=== PATIENT | female | born 2000 | race Asian ===

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

== ENCOUNTER 2021-03-29 17:30 | Emergency (ER) | payer OTHER, SELFPAY ==
[2021-03-29 17:31] VITALS: BP 108/70; PULSE 61; RESP 14; TEMP 36.7; O2SAT 97; BMI 23.5
[2021-03-29 18:41] LABS: Mucous, Urine 0 SEEN /hpf (<or=2+)
[2021-03-29 18:53] LABS: Glucose, Dipstick Normal (Normal); Ketone-Dipstick 15 mg/dl (Negative); Leukocyte Esterase-Dipstick 500 /ul (Negative); Nitrite-Dipstick Positive (Negative); Occult Blood-Urine 250 /ul (Negative); Protein-Dipstick 15 mg/dl (Negative); Specific Gravity, Urine 1.015 (1.002-1.030); Urine Clarity Sl. Cloudy (Clear); Urine Urobilinogen 8 mg/dl (Normal)
[2021-03-29 18:57] LABS: Internal QC Validated? YES +Cl - CLEAR BKGD; Pregnancy, Urine Negative Negative
[2021-03-29 19:07] LABS: Color, Urine SEE COMMENT BELOW (Yellow); Urine Bilirubin Dipstick 3 mg/dL (Negative)
[2021-03-29 19:10] LABS: White Blood Cells 10-25 SEEN /hpf (0-5)
--- NOTE | 2021-03-29 19:10 | EX.ED.DYSGE1 ---
HPI History of Present Illness Chief Complaint: Nausea/Vomiting Narrative Narrative: 20-year-old female presenting for evaluation of dysuria and urinary frequency. She states this started yesterday. Patient states that last time she had a urinary tract infection was about a year ago. Patient states that she started to feel pain in her lower back and in her bladder. Patient states she felt feverish but has not actually had a fever. She took ibuprofen and that helped her pain. She still has nausea. She denies vaginal complaint. PFSH PFS Medical History Depression PTSD (post-traumatic stress disorder) Home Medications cephalexin 500 mg PO Q12 #14 capsule 03/29/21 [Rx Last Taken Unknown] lamotrigine 25 mg PO QODAY 03/29/21 [History Last Taken Unknown] ondansetron 4 mg PO Q8H PRN PRN #10 tab 03/29/21 [Rx Last Taken Unknown] Allergy/AdvReac Type Severity Reaction Status Date / Time No Known Allergies Allergy Verified 03/29/21 17:33 Social History Smoking Status: Current every day smoker tobacco type: cigarettes ROS ROS ED Constitutional Constitutional ED: Reports chills and subjective Eyes Eyes: Denies blurry vision or diplopia ENT ENT ED: Denies rhinorrhea or sore throat Cardiovascular Cardiovascular: Denies chest pain or palpitations Respiratory/Chest Respiratory/Chest: Denies cough or dyspnea Gastrointestinal Gastrointestinal: Reports abdominal pain and nausea; Denies constipation or diarrhea Genitourinary Genitourinary ED: Reports dysuria and urinary frequency Musculoskeletal Musculoskeletal: Reports back pain; Denies myalgias Integumentary Denies abscess or rash Neurologic Neurologic: Denies headache(s), paresthesias or weakness EXAM Physical Exam Const Vital Signs: 03/29/21 17:31 Temperature 98.1 F Temperature Source Temporal Pulse Rate 61 Respiratory Rate 14 Blood Pressure 108/70 Blood Pressure Mean 82 Pulse Ox 97 Oxygen Delivery Method Room Air Positive well nourished General Appearance ED: NAD HEENT Reports moist mucous membranes Negative for trauma Eyes PERRL and EOMs intact bilaterally Resp normal respiratory effort and clear to auscultation bilaterally Cardio regular rate and regular rhythm Back/Spine no CVA tenderness Neuro oriented x3 and CN's II-XII intact bilaterally Sensorium / Orientation: alert Psych mental status grossly normal Skin no rashes or lesions noted and no wounds MDM MDM MDM Narrative Medical decision making narrative: Patient presenting with concern for UTI. She is found to be positive for this. Patient does have some small occult blood in her urine but states she does not have history of kidney stones. She does not have any CVA tenderness on exam. Her abdomen is soft nontender, nondistended. Patient will be started on Keflex with first dose in the ED. Urine will be sent for culture. Patient discharged home in stable condition. Impression: 1. Nausea/vomiting/ 2. UTI Lab Data Labs: Laboratory Results - last 24 hr 03/29/21 18:35 Urine Color SEE COMMENT BELOW Urine Clarity Sl. Cloudy Urine pH 5.0 Ur Specific [place] 1.015 Urine Protein 15 H Urine Glucose (UA) Normal Urine Ketones 15 H Urine Occult Blood 250 H Urine Nitrite Positive H Urine Bilirubin 3 H Urine Urobilinogen 8 H Ur Leukocyte Esterase 500 H Urine RBC 5-10 SEEN Urine WBC 10-25 SEEN Ur Squamous Epith Cells 0-5 SEEN Urine Bacteria RARE Urine Mucus 0 SEEN Urine Test Negative Discharge Plan Triage Chief Complaint: Nausea/Vomiting ED Provider: Jeovany Ornelas Dx/Rx/DC Orders Instructions: ED CYSTITIS Female Adult Prescriptions: New ondansetron 4 mg tablet,disintegrating 4 mg PO Q8H PRN PRN (Reason: Nausea) Qty: 10 RF: 0 cephalexin 500 mg capsule 500 mg PO Q12 Qty: 14 RF: 0 No Action lamotrigine 25 mg Tablet 25 mg PO QODAY RF: 0 Referrals: Samantha Porras MD [STAFF PHYSICIAN] - As Needed Disposition Disposition: Home, Self Care
[2021-03-29 19:11] LABS: Bacteria RARE /hpf (None Seen); Red Blood Cells-Urine 5-10 SEEN /hpf (0-5); Squamous Epithelial Cells - UA 0-5 SEEN /hpf (5-10)
[2021-03-29] MEDS: Ondansetron ODT 4 MG Tablet PO (19:48)
[2021-03-29] MEDS: Cephalexin 250 MG Capsule 500 MG PO (19:48)
== END 2021-03-29 19:50 | disposition home or self-care (01) ==
LOC: ED 19:25
PROVIDERS: Emergency Provider Student in an Organized Health Care Education/Training Program
DX: R11.2 Nausea with vomiting, unspecified (principal); N39.0 Urinary tract infection, site not specified; F17.210 Nicotine dependence, cigarettes, uncomplicated; Z79.899 Other long term (current) drug therapy
CPT/HCPCS: 81001; 81025; 87077; 87086; 87088; 87186; 99283

== ENCOUNTER 2022-11-03 01:26 | Emergency (ER) | payer OTHER, SELFPAY ==
[2022-11-03 01:30] VITALS: BP 115/80; PULSE 107; RESP 20; TEMP 35.9; O2SAT 97; BMI 17.1
--- NOTE | 2022-11-03 05:52 | ED.RN ---
see downtime documentation from patient arrival until this time.
--- NOTE | 2022-11-03 06:04 | EX.ED.VIS.PS ---
HPI HPI - Psych History of Present Illness Chief Complaint: Mental Health Informant: patient Narrative Narrative: Patient presents secondary to suicidal ideation. She is a student at the [employer]. She states that she has had intermittent problems with suicidal thoughts. It has been worse recently. She states that her plan would be to overdose on pills. Staff from the [employer] called the ER and stated that they did find that the patient had pills late out. Patient states that she has had thoughts of suicide in the past but has never actually attempted. PFSH PFSH Medical History Depression PTSD (post-traumatic stress disorder) Home Medications cephalexin 500 mg capsule 500 mg PO Q12 #14 CAPSULES 03/29/21 [Rx Last Taken Unknown] lamotrigine 25 mg tablet 25 mg PO QODAY 03/29/21 [History Last Taken Unknown] ondansetron 4 mg disintegrating tablet 4 mg PO Q8H PRN PRN Nausea #10 tabs 03/29/21 [Rx Last Taken Unknown] Allergy/AdvReac Type Severity Reaction Status Date / Time No Known Allergies Allergy Verified 03/29/21 17:33 Social History Smoking Status: Current every day smoker tobacco type: cigarettes ROS ROS ED Constitutional Constitutional ED: Denies chills or fever(s) Eyes Eyes: Denies change in vision or discharge from eye(s) ENT ENT ED: Denies discharge from eye(s), rhinorrhea or sore throat Cardiovascular Cardiovascular: Denies chest pain or palpitations Respiratory/Chest Respiratory/Chest: Denies cough or dyspnea Gastrointestinal Gastrointestinal: Denies abdominal pain, nausea or vomiting Genitourinary Genitourinary ED: Denies difficulty urinating or dysuria Musculoskeletal Musculoskeletal: Denies back pain or extremity pain Integumentary Denies Abrasions or rash Neurologic Neurologic: Denies headache(s) or weakness Psychiatric Psychiatric: Reports anxiety, depression and suicidal ideation Endocrine Endocrinology: Denies polydipsia or polyuria Allergic/Immunologic Allergic/Immunologic ED: Denies lip swelling or urticaria EXAM Physical Exam Const Positive well nourished and well developed General Appearance ED: well developed HEENT Reports normocephalic and head/scalp atraumatic Eyes PERRL and EOMs intact bilaterally Neck supple Chest Wall inspection of chest normal and palpation of chest normal Resp normal respiratory effort and clear to auscultation bilaterally Cardio regular rate and regular rhythm GI normal to inspection, nondistended, normoactive bowel sounds Palpation: soft Extremity normal to inspection Neuro oriented x3 and no sensory deficits noted Sensorium / Orientation: alert Motor Exam: strength 5/5 throughout Psych cooperative Appearance: grossly normal Attitude: calm Speech: normal speech Mood & Affect: flat affect Thought Content: suicidality Skin no rashes or lesions noted MDM MDM MDM Narrative Medical decision making narrative: Lab work for psychiatric clearance undertaken. Lab Data Attestation: I reviewed the patient's lab results. Lab results narrative: CBC and chemistry studies are unremarkable. test is negative. Tox and EtOH are negative. COVID test is negative. Treatment and Re-Evaluation Narrative: Patient did speak with Rica from the counseling center on the phone. She does agree the patient will likely need placement. She will work on placement at this time. I have a pink slip and transfer sheet signed. Patient did request her evening dose of Seroquel to help her sleep and this was provided. She has been cooperative throughout her ED stay. Discharge Plan Triage Chief Complaint: Mental Health ED Provider: Roxanne Ruggiero Dx/Rx/DC Orders Clinical Impression: Suicidal ideation Prescriptions: No Action lamotrigine 25 mg Tablet 25 mg PO QODAY ondansetron 4 mg tablet,disintegrating 4 mg PO Q8H PRN PRN (Reason: Nausea) Qty: 10 0RF cephalexin 500 mg capsule 500 mg PO Q12 Qty: 14 0RF Primary Care Provider: Care Physician,No Primary Referrals: Care Physician,No Primary [Primary Care Provider] - Disposition Disposition: Psychiatric Hospital or Unit
[2022-11-03 06:43] VITALS: BP 92/52; PULSE 75; RESP 14; O2SAT 98
[2022-11-03 08:31] LABS: Anion Gap 5 (5-15); BUN 7 mg/dL (7-18); BUN/Creat Ratio 11.3 RATIO (10-20); Calcium,Total 9.3 mg/dL (8.5-10.1); Chloride 108 mmol/L (98-107); Creatinine, Serum 0.62 mg/dL (0.55-1.02); EST Glomerular Filtration Rate 128 mL/min (>60); Est Glom Filt Rate - Afr Amer 155 mL/min (>60); Estimated Creatinine Clearance 108.07 ml/min; Glucose 73 mg/dL (74-106); Potassium 3.5 mmol/L (3.5-5.1); Sodium Level 140 mmol/L (136-145); Vista UDS pH Range 6
[2022-11-03 08:32] LABS: Amphetamine Urine VISTA NEGATIVE (<1000 ng/mL); Barbiturate Urine VISTA NEGATIVE (< 200 ng/mL); Benzodiazepine Urine VISTA NEGATIVE (< 200 ng/mL); Cocaine Urine VISTA NEGATIVE (< 300 ng/mL); Ecstacy Urine VISTA NEGATIVE (< 500 ng/mL); Internal QC Validated? YES +Cl - CLEAR BKGD; Methadone Urine VISTA NEGATIVE (< 300 ng/mL); PCP Urine VISTA NEGATIVE (< 25 ng/mL); Pregnancy, Serum, hCG Quali. NEGATIVE Negative; THC Urine VISTA NEGATIVE (< 50 ng/mL)
[2022-11-03 09:14] VITALS: BP 110/80; PULSE 70; RESP 14; O2SAT 99
[2022-11-03 12:13] LABS: Basophil% 0.9 % (0-1); Eosinophils% 0.7 % (0-5); Hematocrit 36.1 % (37-47); Hemoglobin 11.9 g/dL (12.0-15.0); Lymphocyte % 36.3 % (19-41); Mean Corpuscular Hgb 29.3 pg (27.0-32.0); Mean Corpuscular Volume 88.9 fL (81-99); Mean Platelet Vol. 10.1 fl (6.2-12.0); Monocyte% 7.1 % (0-10); Neutrophil % 54.8 % (47-70); Platelet Count 275 K/mm3 (150-450); RBC Distribution Width SD 42.5 fl (35.1-43.9); Red Blood Count 4.06 M/mm3 (4.2-5.4); White Blood Count 8.2 K/mm3 (4.4-11.0)
[2022-11-03 12:14] LABS: Absolute Lymphocyte Count 2.98 X10^3/uL (0.83-4.51); Absolute Neutrophil Count 4.5 X10^3/uL (2.0-7.7); Basophil# 0.07 X10^3/uL; Eosinophil# 0.06 X10^3/uL; Lymphocyte # 2.98 X10^3/ul (0.83-4.51); Monocyte# 0.58 X10^3/uL; Neutrophil # 4.51 X10^3/uL (2.7-7.7)
== END 2022-11-03 09:15 ==
PROVIDERS: Emergency Provider Emergency Medicine; Visit Provider Emergency Medicine
DX: F32.A Depression, unspecified (principal); F43.10 Post-traumatic stress disorder, unspecified; R45.851 Suicidal ideations; F17.210 Nicotine dependence, cigarettes, uncomplicated; Z79.899 Other long term (current) drug therapy
CPT/HCPCS: 80048; 80307; 82077; 84703; 85025; 87811; 99284